=== PATIENT | female | born 1965 | race African-American/Black ===

== ENCOUNTER → 2016-11-28 | Outpatient (CLI) | payer OTHER ==
[~2016-11-28] MED LIST: CYCL10TA2 PO; DOCU-150 PO; FERR-26 PO; GABA-586 PO; HYDR-2762 PO; HYDR28.3 TP; LOSA1TAB17 PO; OXYC1TAB7 PO; TRAM50TA PO; Vit D3; Vitamin D 3
--- NOTE | 2016-11-28 10:29 | RAD ---
Pelvis with both hips, 5 views, 11/28/2016: History: Right hip pain A left total hip prosthesis is in place in satisfactory position. No fracture or dislocation is identified. The right hip joint space is fairly well-preserved with only minimal marginal spurring. There is mild spurring in the lower lumbar spine. IMPRESSION: 1. A left total hip prosthesis is in satisfactory position. 2. No acute pelvic or hip abnormality is detected. Lumbar spine, 3 views, 11/28/2016: History: Back pain The lumbar vertebral heights are well-maintained. The intervertebral disc spaces are well preserved. There are mild scattered marginal spurs. There are mild sclerotic changes involving facet joints in the lower lumbar spine. Minimal aortic calcific plaquing is present. IMPRESSION: 1. Mild degenerative change. 2. No acute bony abnormality is detected.
== END | disposition home or self-care (01) ==
LOC: RAD 09:23
PROVIDERS: ATTEND Family Medicine
DX: M47.896 Other spondylosis, lumbar region (principal)
CPT/HCPCS: 72100; 73521